=== PATIENT | male | born 1980 | race Hispanic/Latino ===

== ENCOUNTER 2017-11-13 19:35 | Emergency (ER) | payer OTHER ==
[2017-11-13 19:47] VITALS: PULSE 64; RESP 20; TEMP 97; O2SAT 99
[2017-11-13] MEDS ORDERED: Sodium Chloride 0.9% 1,000 ML IV STA (19:57)
[2017-11-13 20:22] LABS: EOS # 0.8 K/uL (0.0-0.7); EOS % 10.2 % (0.0-4.0); HEMOGLOBIN 16.1 g/dL (12.0-18.0); LYMPH # 2.1 K/uL (1.0-4.3); LYMPH % 27.4 % (20.0-40.0); MEAN CELL VOLUME 86.6 fl (80.0-94.0); MEAN CORPUSCULAR HEMOGLOBIN 29.6 pg (27.0-31.0); MEAN CORPUSCULAR HGB CONC 34.2 g/dL (33.0-37.0); MEAN PLATELET VOLUME 8.9 fl (7.2-11.7); MONO # 1.4 K/uL (0.0-0.8); MONO % 18.8 % (0.0-10.0); NEUT # 3.3 K/uL (1.8-7.0); NEUT % 43.6 % (50.0-75.0); NRBC % 0.1 % (0.0-0.0); RBC 5.43 Mil/uL (4.40-5.90); RED CELL DISTRIBUTION WIDTH 13.5 % (11.5-14.5); WHITE BLOOD COUNT 7.7 K/uL (4.8-10.8)
[2017-11-13 20:34] LABS: SQUAMOUS EPITHIAL < 1 /hpf (0-5); URINE BACTERIA RARE (<OCC); URINE BILIRUBIN NEGATIVE (NEGATIVE); URINE BLOOD LARGE (NEGATIVE); URINE CLARITY SLIGHTY-CLOUDY (Clear); URINE COLOR YELLOW (YELLOW); URINE GLUCOSE (UA) NEG (Normal); URINE LEUKOCYTE ESTERASE NEG Leu/uL (Negative); URINE PROTEIN NEGATIVE (NEGATIVE); URINE UROBILINOGEN 0.2-1.0 mg/dL (0.2-1.0)
--- NOTE | 2017-11-13 20:36 | ED PDOC ---
HPI: Abdomen Time Seen by Provider: 11/13/17 19:52 Chief Complaint (Nursing): Abdominal Pain Chief Complaint (Provider): Abdominal Pain History Per: Patient History/Exam Limitations: no limitations Onset/Duration Of Symptoms: Hrs (x 2 prior to arrival) Current Symptoms Are (Timing): Still Present Associated Symptoms: Nausea Additional Complaint(s): 37 year old male presents to the ED complaining of left lower quadrant abdominal pain with associated nausea, onset 2 hours prior to arrival. Patient reports it is worse with movement and relieved by sitting in the position. He denies any urinary symptoms, fever and chills. PMD: [facility] Past Medical History Reviewed: Historical Data, Nursing Documentation, Vital Signs Vital Signs: Last Vital Signs Temp 97 F L 11/13/17 19:43 Pulse 64 11/13/17 19:43 Resp 20 11/13/17 19:43 BP Pulse Ox 99 11/13/17 23:02 - Medical History PMH: No Chronic Diseases - Surgical History Surgical History: No Surg Hx - Family History Family History: States: Unknown Family Hx - Social History Current smoker - smoking cessation education provided: No Alcohol: None Drugs: Denies - Home Medications Home Medications: Ambulatory Orders Medication Instructions Recorded Acetaminophen/Hydrocodone Bi 1 tab PO Q8 PRN #12 tab 11/13/17 [Vicodin 300 mg-5 mg] Ibuprofen [Motrin Tab] 600 mg PO Q6 #30 tab 11/13/17 Tamsulosin [Flomax] 0.4 mg PO BID #30 cap 11/13/17 - Allergies Allergies/Adverse Reactions: Allergies Allergy/AdvReac Type Severity Reaction Status Date / Time No Known Allergies Allergy Verified 11/13/17 19:43 Review of Systems ROS Statement: Except As Marked, All Systems Reviewed And Found Negative Constitutional: Negative for: Fever, Chills Gastrointestinal: Positive for: Nausea, Abdominal Pain (LLQ) Genitourinary Male: Negative for: Dysuria, Frequency, Incontinence, Hematuria Physical Exam - Reviewed Nursing Documentation Reviewed: Yes Vital Signs Reviewed: Yes - Physical Exam Appears: Positive for: Non-toxic, Uncomfortable Head Exam: Positive for: ATRAUMATIC, NORMOCEPHALIC Skin: Positive for: Normal Color, Warm, Dry Eye Exam: Positive for: EOMI, Normal appearance, PERRL Neck: Positive for: Normal, Painless ROM, Supple Cardiovascular/Chest: Positive for: Regular Rate, Rhythm. Negative for: Murmur Respiratory: Positive for: Normal Breath Sounds. Negative for: Respiratory Distress Gastrointestinal/Abdominal: Positive for: Normal Exam, Soft. Negative for: Tenderness Back: Positive for: Normal Inspection. Negative for: L CVA Tenderness, R CVA Tenderness Extremity: Positive for: Normal ROM. Negative for: Deformity Neurologic/Psych: Positive for: Alert, Oriented. Negative for: Motor/Sensory Deficits - Laboratory Results Result Diagrams: 11/13/17 20:19 11/13/17 20:19 - ECG O2 Sat by Pulse Oximetry: 99 (RA) Pulse Ox Interpretation: Normal Medical Decision Making Medical Decision Making: Time: 19:57 Impression: kidney stone vs hernia vs gas Initial Plan: --Abd Pelvis CT --BMP --Toradol 30 mg IVP --Normal Saline IV 1,000 mls/hr --Urine cx --Urinalysis CT FINDINGS: Lower thorax: No acute findings. No pleural effusions. ABDOMEN: Liver: Unremarkable. No solid masses. A few small hepatic cysts are likely present. Gallbladder and bile ducts: Unremarkable. No calcified stones. No ductal dilatation. Pancreas: Unremarkable. No ductal dilatation. Spleen: Unremarkable. No splenomegaly. Adrenals: Unremarkable. No mass. Kidneys and ureters: Mild left hydroureteronephrosis. Small distal left-sided stone (2 mm size) (axial image #78) --- probably in the intramural portion of the distal left ureter (or perhaps recently passed into the urinary bladder). Stomach and bowel: Unremarkable. No bowel obstruction. No mucosal thickening. Appendix: A normal air-filled appendix is visualized. PELVIS: Bladder: Unremarkable. No stones nor mass. Reproductive: Unremarkable as visualized. ABDOMEN and PELVIS: Intraperitoneal space: Unremarkable. No free air. No significant fluid collection. Bones/joints: No acute fracture nor dislocation. Soft tissues: Unremarkable. Vasculature: Unremarkable. No abdominal aortic aneurysm. Lymph nodes: Unremarkable. No enlarged lymph nodes. IMPRESSION: Mild left hydroureteronephrosis. Small distal left-sided stone (2 mm size) --- probably in the intramural portion of the distal left ureter (or perhaps recently passed into the urinary bladder). No acute bowel pathology. A normal appendix is visualized. Patient states he had resolution of pain after toradol. Gave patient result of CT, including incidental findings on liver. Advised patient to f/u w/ his PMD and Dr. Addison. Advised patient to take motrin, flomax, and vicodin only as absolutely needed for pain control given addictive potential. Patient understands this. Urine filter provided. Return precautions given. BP erroneously not documented, however patient had no fever, normal pulse, not concerned for infection/sepsis. will refer case to PA review to contact patient in morning to have his PMD check BP in office upon re-evaluation. Scribe Attestation: Documented by Jerri Redd, acting as a scribe for Alexis Duggan MD. Provider Scribe Attestation: All medical record entries made by the Scribe were at my direction and personally dictated by me. I have reviewed the chart and agree that the record accurately reflects my personal performance of the history, physical exam, medical decision making, and the department course for this patient. I have also personally directed, reviewed, and agree with the discharge instructions and disposition. Disposition - Clinical Impression Clinical Impression: Kidney stone - Disposition Referrals: Charles Addison MD [Medical Doctor] - Disposition Time: 23:00 Condition: IMPROVED Prescriptions: Acetaminophen/Hydrocodone Bi [Vicodin 300 mg-5 mg] 1 tab PO Q8 PRN #12 tab PRN Reason: Pain, Severe (8-10) Ibuprofen [Motrin Tab] 600 mg PO Q6 #30 tab Tamsulosin [Flomax] 0.4 mg PO BID #30 cap Instructions: Kidney Stones in Adults Forms: [employer] (Czech)
[2017-11-13 20:39] LABS: BLOOD UREA NITROGEN 24 mg/dl (9-20); CALCIUM 9.7 mg/dL (8.4-10.2); GFR AFRICAN-AMERICAN > 60; GFR NON-AFRICAN AMERICAN > 60
--- NOTE | 2017-11-14 09:28 | CT ---
PROCEDURE: CT Abdomen and Pelvis without intravenous contrast HISTORY: LLQ pain COMPARISON: None. TECHNIQUE: Technique. Contrast Dose: Radiation dose: Total exam DLP = mGy-cm. This CT exam was performed using one or more of the following dose reduction techniques: Automated exposure control, adjustment of the mA and/or kV according to patient size, and/or use of iterative reconstruction technique. FINDINGS: LOWER THORAX: Unremarkable. LIVER: Unremarkable. No gross lesion or ductal dilatation. GALLBLADDER AND BILE DUCTS: Unremarkable. PANCREAS: Unremarkable. No gross lesion or ductal dilatation. SPLEEN: Unremarkable. ADRENALS: Unremarkable. No mass. KIDNEYS AND URETERS: Left hydroureteronephrosis with punctate calculus in the left urinary bladder. VASCULATURE: Unremarkable. No aortic aneurysm. BOWEL: Unremarkable. No obstruction. No gross mural thickening. APPENDIX: Unremarkable. Normal appendix. PERITONEUM: Unremarkable. No free fluid. No free air. LYMPH NODES: Unremarkable. No enlarged lymph nodes. BLADDER: Unremarkable. REPRODUCTIVE: Unremarkable. BONES: No acute fracture. OTHER FINDINGS: None. IMPRESSION: Left hydroureteronephrosis with punctate calculus in the left urinary bladder.
== END 2017-11-13 23:30 | disposition home or self-care (01) ==
LOC: H.ER 19:35
DX: N20.0 Calculus of kidney (principal)
CPT/HCPCS: 74176; 80048; 81003; 85025; 87086; 96374; 96376; 99282; J1885; J7040